=== PATIENT | female | born 1995 | race Caucasian/White ===

== ENCOUNTER 2018-05-01 23:56 | Emergency (ER) | payer BC ==
[~2018-05-01] VITALS: Ht 154.9 cm; Wt 56.7 kg
[2018-05-02] MEDS ORDERED: ONDANSETRON 4 MG/2 ML VIAL IV ONE
--- NOTE | 2018-05-02 00:08 | NUR ---
Dr. Bowser at bedside for MSE.
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
[2018-05-02] MEDS ORDERED: IV NORMAL SALINE 1000 ML BAG IV ONE ×3 (00:30→02:15)
[2018-05-02 00:42] LABS: BASOPHILS # (AUTO) 0.1 K/uL (0.0-8.0); BASOPHILS % (AUTO) 0.8 % (0.0-2.0); EOSINOPHILS # (AUTO) 0.2 K/uL (0.0-0.7); EOSINOPHILS % (AUTO) 1.8 % (0.0-7.0); HEMATOCRIT 37.7 % (31.2-41.9); HEMOGLOBIN 13.1 g/dL (10.9-14.3); LYMPHOCYTES # (AUTO) 3.4 K/uL (20.0-40.0); LYMPHOCYTES % (AUTO) 36.7 % (20.5-51.5); MEAN CORPUSCULAR HEMOGLOBIN 30.8 uug (24.7-32.8); MEAN CORPUSCULAR HGB CONC 35 g/dL (32.3-35.6); MEAN CORPUSCULAR VOLUME 88.9 fL (75.5-95.3); MONOCYTES # (AUTO) 0.4 K/uL (2.0-10.0); MONOCYTES % (AUTO) 4.5 % (0.0-11.0); NEUTROPHILS # (AUTO) 5.2 K/uL (1.8-8.9); NEUTROPHILS % (AUTO) 56.2 % (38.5-71.5); PLATELET COUNT (AUTO) 305 K/uL (179-408); RED BLOOD CELL COUNT(AUTO) 4.24 MIL/uL (3.63-4.92); WHITE BLOOD COUNT (AUTO) 9.2 K/uL (3.8-11.8)
[2018-05-02 00:47] LABS: CREATININE 0.9 mg/dL (0.6-1.3)
[2018-05-02 00:51] LABS: POTASSIUM 2.8 mmol/L (3.5-5.1)
[2018-05-02 00:53] LABS: BILIRUBIN,DIRECT 0.1 mg/dL (0.0-0.2); BILIRUBIN,TOTAL 0.3 mg/dL (0.2-1.0); TOTAL PROTEIN, SERUM 7.7 g/dL (6.4-8.2)
[2018-05-02] MEDS ORDERED: ONDANSETRON 4 MG/2 ML VIAL ONE (00:54)
[2018-05-02] MEDS ORDERED: POTASSIUM CHLORIDE 50 ML ONE ×4 (01:05→04:58)
[2018-05-02] MEDS: POTASSIUM CHLORIDE 50 ML IV SCH ×4 (01:25→05:50)
--- NOTE | 2018-05-02 01:25 | NUR ---
Started KCl IV infusion.
--- NOTE | 2018-05-02 01:39 | NUR ---
Pt's blood pressure low, 84/53. Placed pt in Trendelenburg position. notified.
[2018-05-02] MEDS ORDERED: POTASSIUM CHLORIDE 10 MEQ TAB.PRT.SR PO ONE (02:15)
--- NOTE | 2018-05-02 02:30 | NUR ---
1st bag KCl IV finished.
--- NOTE | 2018-05-02 02:50 | NUR ---
Started 2nd bag of KCl IV.
--- NOTE | 2018-05-02 03:36 | NUR ---
Pt sleeping in bed, no acute signs of distress, father at bedside.
--- NOTE | 2018-05-02 04:05 | NUR ---
Administered 3rd bag of KCl 10MEQ 50ml IVPB on left wrist 20G.
--- NOTE | 2018-05-02 05:30 | NUR ---
Pt awake, talking to father. MD notified.
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
--- NOTE | 2018-05-02 05:45 | NUR ---
Pt provided urine sample, sent to lab.
--- NOTE | 2018-05-02 05:50 | NUR ---
Started 4th bag of IVPB KCl 50 ml/hr.
--- NOTE | 2018-05-02 06:15 | NUR ---
Patient discharged to home in stable conditon. Written and verbal after care instructions given. Patient verbalizes understanding of instructions. Patient ambulated out of ER with steady gait, no acute signs of distress, VSS, all belongings taken, IV site discontinued.
[2018-05-02] MEDS ORDERED: POTASSIUM CHLORIDE 20 MEQ TAB.PRT.SR ONE (06:16)
[2018-05-02 06:23] VITALS: BP 113/71
--- NOTE | 2018-05-21 01:25 | NUR ---
Jamar hubbard in [facility] [place] - 05/21/18 at 2043 by TRACE Started KCl IV infusion.
== END 2018-05-02 06:20 | disposition home or self-care (01) ==
LOC: ER 05-02
DX: F10.129 Alcohol abuse with intoxication, unspecified (principal); E86.0 Dehydration; E87.6 Hypokalemia; Z88.0 Allergy status to penicillin
CPT/HCPCS: 36415; 71045; 83690; 83735; 84703; 85025; A4663; G0480; J2405; J3480; J7030